=== PATIENT | male | born 1985 | race American Indian/Alaskan Native ===

== ENCOUNTER 2018-10-27 16:12 | Emergency (ER) | payer OTHER ==
[2018-10-27 16:22] VITALS: BMI 29.0
[2018-10-27 17:05] VITALS: BP 130/90; PULSE 83; RESP 18; TEMP 97.7; O2SAT 98
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
== END 2018-10-27 18:18 | disposition home or self-care (01) ==
LOC: C.ER 16:12
DX: S16.1XXA Strain of muscle, fascia and tendon at neck level, initial encounter (principal); V81.3XXA Occupant of railway train or railway vehicle injured in collision with other object, initial encounter